=== PATIENT | male | born 1980 | race Two or more races ===

== ENCOUNTER 2016-10-04 20:11 | Inpatient (IN) | payer SELFPAY ==
[~2016-10-04] VITALS: Ht 185.4 cm; Wt 98.0 kg
[2016-10-04 21:38] LABS: BASO % 0 % (0-3); EOS % 1 % (0-3); HEMATOCRIT 49.4 % (39.0-53.0); HEMOGLOBIN 16.7 g/dL (13.0-17.5); LYMPH % 49 % (24-48); MEAN CORPUSCULAR HEMOGLOBIN 32 pg (25-35); MEAN CORPUSCULAR HGB CONC 34 g/dL (31-37); MEAN CORPUSCULAR VOLUME 95 fL (79-100); MONO % 8 % (0-9); NEUT % 42 % (31-73); PLATELET COUNT 187 x10^3/uL (140-400); RED BLOOD COUNT 5.19 x10^6/uL (4.30-5.70); WHITE BLOOD COUNT 8.1 x10^3/uL (4.0-11.0)
[2016-10-04 21:49] LABS: PROTHROMBIN TIME PATIENT 12.4 SEC (11.7-14.0)
[2016-10-04 22:01] LABS: CREATININE 0.9 mg/dL (0.7-1.3); POTASSIUM 3.7 mmol/L (3.5-5.1)
[2016-10-04 22:05] LABS: DIRECT BILIRUBIN 0.1 mg/dL (0.0-0.2); MAGNESIUM 2.6 mg/dL (1.8-2.4); TOTAL BILIRUBIN 0.3 mg/dL (0.2-1.0)
--- NOTE | 2016-10-04 22:10 | PHYS DOC ---
Past Medical History Past Medical History: Other Additional Past Medical Histor: unknown Past Surgical History: Other Additional Past Surgical Histo: unknown Alcohol Use: Heavy Social History Narrative: unknown Adult General Chief Complaint Chief Complaint: OVERDOSE HPI HPI Patient is a 35 year old male who presents by EMS for altered mental status and possible suicidal attempt. Brother is here and states the patient called him and told him to take care of his family. Brother became concerned for patient's well being and went to his house. He did not answer the door, so his brother broke into the home to find the patient on the ground next to a bottle of liquor and a knife with shallow cuts on his left forearm. Brother called EMS. Patient is not awake to answer questions at this time. Brother states patient has been going through a lot of stress recently. Review of Systems Review of Systems Unable to obtain secondary to clinical status Allergies Allergies Allergies Coded Allergies Type Severity Reaction Last Updated Verified No Known Drug Allergies 10/04/16 No Physical Exam Physical Exam Constitutional: Well developed, well nourished, no acute distress, non-toxic appearance. [] HENT: Normocephalic, atraumatic, bilateral external ears normal, oropharynx moist, no oral exudates, nose normal. [] Eyes: PERRLA, EOMI, conjunctiva normal, no discharge. [] Neck: Normal range of motion, no tenderness, supple, no stridor. [] Cardiovascular:Heart rate regular rhythm [] Lungs & Thorax: Bilateral breath sounds clear to auscultation [] Abdomen: Bowel sounds normal, soft, no tenderness. [] Skin: Warm, dry, no erythema, no rash. [] Back: No tenderness, no CVA tenderness. [] Extremities: No tenderness, passive ROM intact, no edema. [] Neurologic: Sleepy but wakes to painful stimuli, (his eyes to pain, localizes pain, speaks clearly to pain), otherwise does not cooperate with neuro exam. [] Psychologic: Unable to assess secondary to altered mental status. [] Current Patient Data Vital Signs Vital Signs Date Time Temp Pulse Resp B/P Pulse Ox O2 Delivery O2 Flow Rate FiO2 10/04/16 21:40 99 16 159/83 99 Nasal Cannula 2 10/04/16 20:12 98.3 98.3 Lab Values Laboratory Tests Test 10/04/16 20:18 10/04/16 21:15 Urine Collection Type Unknown Urine Color Yellow Urine Clarity Clear Urine pH 6.0 Urine Specific [place] <=1.005 Urine Protein Negativemg/dL (NEG-TRACE) Urine Glucose (UA) Negativemg/dL (NEG) Urine Ketones (Stick) Negativemg/dL (NEG) Urine Blood Large (NEG) Urine Nitrite Negative (NEG) Urine Bilirubin Negative (NEG) Urine Urobilinogen Dipstick 0.2mg/dL (0.2 mg/dL) Urine Leukocyte Esterase Negative (NEG) Urine RBC 3-5/HPF (0-2) Urine WBC 0/HPF (0-4) Urine Squamous Epithelial Cells Few/LPF Urine Bacteria 0/HPF (0-FEW) Urine Opiates Screen Neg (NEG) Urine Methadone Screen Neg (NEG) Urine Barbiturates Neg (NEG) Urine Phencyclidine Screen Neg (NEG) Urine Amphetamine/Methamphetamine Neg (NEG) Urine Benzodiazepines Screen Neg (NEG) Urine Cocaine Screen Neg (NEG) Urine Cannabinoids Screen Neg (NEG) Urine Ethyl Alcohol Pos (NEG) White Blood Count 8.1x10^3/uL (4.0-11.0) Red Blood Count 5.19x10^6/uL (4.30-5.70) Hemoglobin 16.7g/dL (13.0-17.5) Hematocrit 49.4% (39.0-53.0) Mean Corpuscular Volume 95fL (79-100) Mean Corpuscular Hemoglobin 32pg (25-35) Mean Corpuscular Hemoglobin Concent 34g/dL (31-37) Red Cell Distribution Width 13.0% (11.5-14.5) Platelet Count 187x10^3/uL (140-400) Neutrophils (%) (Auto) 42% (31-73) Lymphocytes (%) (Auto) 49% (24-48) H Monocytes (%) (Auto) 8% (0-9) Eosinophils (%) (Auto) 1% (0-3) Basophils (%) (Auto) 0% (0-3) Neutrophils # (Auto) 3.4x10^3uL (1.8-7.7) Lymphocytes # (Auto) 4.0x10^3/uL (1.0-4.8) Monocytes # (Auto) 0.6x10^3/uL (0.0-1.1) Eosinophils # (Auto) 0.1x10^3/uL (0.0-0.7) Basophils # (Auto) 0.0x10^3/uL (0.0-0.2) Prothrombin Time 12.4SEC (11.7-14.0) Prothrombin Time INR 1.0 (0.8-1.1) PTT 28SEC (24-38) Sodium Level 144mmol/L (136-145) Potassium Level 3.7mmol/L (3.5-5.1) Chloride Level 106mmol/L (98-107) Carbon Dioxide Level 27mmol/L (21-32) Anion Gap 11 (6-14) Blood Urea Nitrogen 11mg/dL (8-26) Creatinine 0.9mg/dL (0.7-1.3) Estimated GFR (Cockcroft-Gault) 96.0 Glucose Level 125mg/dL (70-99) H Calcium Level 9.0mg/dL (8.5-10.1) Magnesium Level 2.6mg/dL (1.8-2.4) H Total Bilirubin 0.3mg/dL (0.2-1.0) Direct Bilirubin 0.1mg/dL (0.0-0.2) Aspartate Amino Transferase (AST) 62U/L (15-37) H Alanine Aminotransferase (ALT) 101U/L (16-63) H Alkaline Phosphatase 104U/L (46-116) Ammonia 21mcmol/L (11-34) Troponin I Quantitative < 0.017ng/mL (0.000-0.055) Total Protein 8.0g/dL (6.4-8.2) Albumin 4.0g/dL (3.4-5.0) Salicylates Level < 2.8mg/dL (2.8-20.0) L Salicylate Last Dose Date Unknown Salicylate Last Dose Time Unknown Acetaminophen Level < 2.0mcg/ml (10-30) L Acetaminophen Last Dose Date Unknown Acetaminophen Last Dose Time Unknown Ethyl Alcohol Level 117mg/dL (0-10) H Laboratory Tests 10/04/16 21:15 Laboratory Tests 10/04/16 21:15 Radiology/Procedures Radiology/Procedures Chest xray as interpreted by me with no acute cardiopulmonary disease process Head CT without contrast IMPRESSION: No acute intracranial abnormality. Electronically signed by: Carlitos Goff (Oct 04, 2016 22:52:34) Course & Med Decision Making Course & Med Decision Making Pertinent Labs and Imaging studies reviewed. (See chart for details) Workup remarkable for alcohol intoxication. He became very agitated during his observation and required physical restraint and chemical restraint. He calmed and restraints were removed while he was still in the emergency department. His altered mental status persists. Will admit for altered mental status likely from metabolic encephalopathy. Suicidal precautions in place for concern of suicidal attempt. Discussed case with Dr. Gutiérrez, who will admit. Dragon Disclaimer Dragon Disclaimer This electronic medical record was generated, in whole or in part, using a voice recognition dictation system. Departure Departure Impression: Primary Impression: Altered mental status Additional Impressions: Metabolic encephalopathy Alcohol intoxication Suicidal behavior Disposition: 09 ADMITTED INPATIENT Condition: GUARDED Referrals: NO PCP (PCP) Problem Qualifiers Primary Impression: Altered mental status Altered mental status type: somnolence Qualified Code: R40.0 - Somnolence Additional Impressions: Alcohol intoxication Complication of substance-induced condition: with delirium Qualified Code: F10.121 - Alcohol abuse with intoxication delirium Boris HOPE MD Oct 04, 2016 22:10
[2016-10-04 22:20] LABS: BILIRUBIN,URINE NEGATIVE (NEG); GLUCOSE,URINE NEGATIVE (NEG); NITRITE,URINE NEGATIVE (NEG); PROTEIN,URINE NEGATIVE (NEG-TRACE); UROBILINOGEN,URINE 0.2 mg/dL (0.2 mg/dL)
[2016-10-04 22:27] LABS: BACTERIA,URINE 0 /HPF (0-FEW); BARBITURATES NEG (NEG); BENZODIAZEPINES NEG (NEG); CANNABINOIDS NEG (NEG); COCAINE NEG (NEG); METHADONE NEG (NEG); OPIATES NEG (NEG); PHENCYCLIDINE NEG (NEG); SQUAMOUS EPITHELIAL CELL,UR FEW /LPF; WBC,URINE 0 /HPF (0-4)
[2016-10-04 22:29] LABS: ETHANOL, URINE POS (NEG)
--- NOTE | 2016-10-04 22:53 | RAD ---
PQRS STATEMENT One or more of the following individualized dose reduction techniques were utilized for this study: 1.Automated exposure control 2.Adjustment of the mA and/or kV according to patient size 3.Use of iterative reconstruction technique CT HEAD Indication: ams, pt unresponsiveReason: altered mental status / Spl. Instructions: / History: COMPARISON: None TECHNIQUE: 5 mm contiguous axial images were obtained from the skull base to the vertex in both bone and soft tissue algorithm. FINDINGS: No abnormal attenuation within the brain parenchyma. No evidence of acute intracranial hemorrhage. No extra-axial fluid collections. No mass effect or midline shift.Ventricular size is appropriate. Basal cisterns are patent. No fractures identified. Globes and orbits are within normal limits. Paranasal sinuses and mastoid air cells are clear. IMPRESSION: No acute intracranial abnormality. Electronically signed by: Carlitos Goff (Oct 04, 2016 22:52:34)
[2016-10-04 23:19] LABS: ETHANOL 117 mg/dL (0-10)
[2016-10-04] MEDS ORDERED: ONDANSETRON PF 4 MG/2 ML VIAL. IV PRN (23:30)
[2016-10-04] MEDS ORDERED: ACETAMINOPHEN 325 MG TABLET. PO PRN (23:30)
[2016-10-04] MEDS ORDERED: HALOPERIDOL LACT 5 MG/ML VIAL. IVP ONE (23:45)
[2016-10-04] MEDS: IV NORMAL SALINE 1000ML BAG 1,000 ML IV SCH (23:46)
[2016-10-05 02:49] VITALS: BP 143/86
[2016-10-05 03:00] VITALS: BP 143/86
--- NOTE | 2016-10-05 04:08 | ACF ---
Admit Criteria Forms Admit Criteria Forms Admit Criteria Forms MENTAL STATUS CHANGE Clinical Indications for Inpatient Care (Place 'X' for any and all applicable criteria): Ongoing inpatient care may be needed for ANY ONE of the following(1)(2)(3)(5)(6) : [X]I. Suspected serious etiology (eg, medical disorder, PROPERTY CLAIMS MANAGER event) of mental status change [ ]II. Danger to self or others not manageable at lower level of care [ ]III. Grave disability (eg, inability to perform self care necessary at lower level of care) [ ]IV. Agitation or inappropriate behavior interfering with care for primary condition (eg, attempting to discontinue lines or drains prematurely, unable to cooperate with respiratory care) [ ]V. Delirium [A] [D][E] as described by ANY ONE of the following(26): [ ]a) Delirium due to alcohol or sedative [F] withdrawal [ ]b) Delirium of uncertain etiology that has not responded to appropriate empiric treatment [ ]c) Delirium that prevents performance of a life-sustaining function (eg, feeding or hydrating oneself) [ ]. General contraindications and/or Inappropriate clinical situations for Observational Care in patients with Mental Status Change, when ANY ONE of the following is required: [ ]a) Prediction of prolongation of LOS based on ANY ONE of the following may be considered as a contraindication for observational care 2, 3, 4, 5, 6, 7, 8, 9, 10, 11 [ ]i) Age > 65 yrs. [ ]ii) Patient arriving by ambulance [ ]iii) Patient with high acuity [ ]iv) Patient requiring vital sign monitoring [ ]v) Patient on IV medication [ ]b) Systolic blood pressures 180mmHg 3,12 [ ]c) Patient with altered mental status including delirium and other alteration of consciousness, (3) [ ]d) Patient whose discharge disposition will be to a [facility] home or rehabilitation home should not be managed in Emergency Department Observation Unit. CMS rule requires 3 days hospital stay before such placement.3,13 [ ]e) Patient with failure to thrive due to broad array of etiologies 3,16,17 [ ]f) Inability to ambulate 3,14 Extended stay beyond goal length of stay for the primary condition may be needed until ALL of the following are present(3)(5): [ ]a) Underlying medical etiology of mental status change is absent, or has been established and adequately treated [ ]b) Danger to self or others is absent or manageable at lower level of care. [ ]c) Behavior crisis management, including physical or chemical restraints, is not required or available at lower level of car [ ]d) Substance or alcohol withdrawal is absent or manageable at lower level of care. [ ]e) Behavioral symptoms (eg, agitation, somnolence, inappropriate behavior) are absent, or are manageable at lower level of care. The original [facility] [employer] content created by [facility] [employer] has been revised. The portions of the content which have been revised are identified through the use of italic text or in bold, and [facility] has neither reviewed nor approved the modified material. All other unmodified content is copyright [facility] [employer]. Please see references footnoted in the original [facility] [employer] edition 2015 BERTIN SMITH Oct 05, 2016 04:08
[2016-10-05 07:00] VITALS: BP 108/84
--- NOTE | 2016-10-05 07:04 | EKG ---
[facility] [address] [place] [address] Test Date: 2016-10-04 Test Time: 20:20:23 Pat Name: CYNDEE SAHNI Department: Room: Gender: M Certified Legal Secretary Specialist: : [id number] Requested By: Boris HOPE Order Number: [id number] Reading MD: Measurements Intervals Fabens Rate: 107 P: 30 NV: 202 QRS: 1 QRSD: 114 T: 14 QT: 330 QTc: 446 Interpretive Statements SINUS TACHYCARDIA PROLONGED NV INTERVAL QRS(T) CONTOUR ABNORMALITY CONSIDER INFERIOR MYOCARDIAL DAMAGE ABNORMAL ECG RI6.01 No previous ECG available for comparison
--- NOTE | 2016-10-05 07:42 | RAD ---
Indication altered mental status. Unresponsive patient. Suspect CVA. Protocol exam. A single view of the chest was obtained. No prior imaging of the chest is available. Inspiratory effort is suboptimal. Heart size is at the upper limits of normal. An acute parenchymal infiltrate is not seen. The pulmonary vasculature is normal. IMPRESSION: Heart size at the upper limits of normal. No definite acute or focal process seen in the chest
[2016-10-05] MEDS: IV NORMAL SALINE 1000ML BAG 1,000 ML IV SCH (08:52)
[2016-10-05 11:04] VITALS: BP 128/85
--- NOTE | 2016-10-06 07:14 | DS ---
DATE OF DISCHARGE: 10/05/2016 CHIEF COMPLAINT: Mental status change. HISTORY OF PRESENT ILLNESS: The patient is a pleasant middle-aged relatively healthy male who states he normally does not drink. He states he was having some Tequila last night because he had been depressed. He was brought in by EMS. They were concerned he could be having a suicide attempt because he cut his arm a couple of times on the left with a knife. The patient has been admitted overnight. This morning he is more alert. He is sober. He states he really does not remember much, does not want to hurt himself. We plan to let him go this afternoon if the psychiatric assessment team agrees. PAST MEDICAL HISTORY: None. ALLERGIES: None. FAMILY HISTORY: Hypertension. SOCIAL HISTORY: Does not drink, smoke or take drugs normally. MEDICATIONS: Reviewed, please refer to the MRAD. REVIEW OF SYSTEMS: GENERAL: No history of weight change, weakness or fevers. SKIN: No bruising, hair changes or rashes. EYES: No blurred, double or loss of vision. NOSE AND THROAT: No history of nosebleeds, hoarseness or sore throat. HEART: No history of palpitations, chest pain or shortness of breath on exertion. LUNGS: Denies cough, hemoptysis, wheezing or shortness of breath. GASTROINTESTINAL: Denies changes in appetite, nausea, vomiting, diarrhea or constipation. GENITOURINARY: No history of frequency, urgency, hesitancy or nocturia. NEUROLOGIC: Denies history of numbness, tingling, tremor or weakness. PSYCHIATRIC: No history of panic, anxiety or depression. ENDOCRINE: No history of heat or cold intolerance, polyuria or polydipsia. EXTREMITIES: Denies muscle weakness, joint pain, pain on walking or stiffness. PHYSICAL EXAMINATION: VITAL SIGNS: Temperature afebrile, pulse 67, respirations 18, blood pressure 144/90. GENERAL: He is alert, cooperative, requesting discharge. HEART: Normal S1, S2. LUNGS: Clear. ABDOMEN: Soft, positive bowel sounds. EXTREMITIES: No edema. SKIN: No rashes. PSYCHIATRIC: He is currently stable. He denies any suicidal ideation. Does not really remember what happened last night. ENDOCRINE: No thyromegaly. LYMPHATICS: No cervical nodes. HEMATOPOIETIC: No bruising. LABORATORY DATA: Hematology normal. Electrolytes normal other than glucose of 125. His magnesium is a little high at 2.6. AST and ALT are a little high at 62 and 101. INR 1. Drug screen positive for alcohol. UA is negative. ASSESSMENT AND PLAN: Resolving alcohol intoxication with possible suicide attempt (the patient really denies trying to hurt himself and insists that he is not going to hurt himself). We will go ahead and keep him here for another hour or two until psychiatric assessment team sees him. If they agree, we will let him go home. DISPOSITION: Probably home this afternoon. ACTIVITY: As tolerated. DIET: Low sodium. MEDICATIONS: Please see the MRAD. Total time of discharge is 32 minutes. GENO VALLECILLO DO DR: FRANCIS/alfredito JOB#: [id number] / [id number]
== END 2016-10-05 12:40 | disposition home or self-care (01) | DRG 896 ==
LOC: ER 20:11 → 6 SOUTH 23:00
PROVIDERS: ADMIT Internal Medicine; ATTEND Internal Medicine
DX: F10.129 Alcohol abuse with intoxication, unspecified (principal); G93.41 Metabolic encephalopathy; T14.91 Suicide attempt; Z82.49 Family history of ischemic heart disease and other diseases of the circulatory system
CPT/HCPCS: 36415; 51702; 70450; 71010; 80048; 80076; 81001; 82140; 83735; 84484; 85027; 85610; 85730; 93005; 96374; 96375; G0480; G0481; G6038; J1630; J2405; J7030; 80196; 99285-25

== ENCOUNTER 2017-01-03 11:44 | Emergency (ER) | payer SELFPAY ==
[~2017-01-03] VITALS: Ht 177.8 cm; Wt 77.1 kg
[2017-01-03 11:44] VITALS: BP 161/99
--- NOTE | 2017-01-03 12:22 | PHYS DOC ---
Past Medical History Past Medical History: No Pertinent History, Other Additional Past Medical Histor: PT DENIES Past Surgical History: No Surgical History, Other Additional Past Surgical Histo: PT DENIES Alcohol Use: Heavy Social History Narrative: PT DENIES ANY SMOKING/DRINKING/STREET DRUGS Adult General Chief Complaint Chief Complaint: MECHANICAL FALL HPI HPI Patient is a 36 year old male brought in by EMS for evaluation of syncopal episode with headache. He is covering grass and is in a c-collar laying flat in bed. He informed the nurse before I came in that he wants to sign out AGAINST MEDICAL ADVICE. I went and spoke to him and asked him what happened and he says that he has these syncopal episodes every once a while last was 5 years ago. He told me that he has not seen anyone in 5 years I told him it would be a good idea if you let me check him out. Patient refused stating that he needs to go to work and he feels fine. Patient is alert and oriented 3, and he is moving all his extremities and he has normal vital signs. Patient stood up and walked in front of me with a normal gait. Patient is going to sign out AGAINST MEDICAL ADVICE and he accepted the risks of and disability by leaving against my advice. Review of Systems Review of Systems UNABLE TO OBTAIN HE IS WANTING TO SIGN OUT AMA. Allergies Allergies Allergies Coded Allergies Type Severity Reaction Last Updated Verified No Known Drug Allergies 10/04/16 No Physical Exam Physical Exam Constitutional: Well developed, well nourished, no acute distress, non-toxic appearance. [] Current Patient Data Vital Signs Vital Signs Date Time Temp Pulse Resp B/P (MAP) Pulse Ox O2 Delivery O2 Flow Rate FiO2 01/03/17 11:44 97.8 103 18 161/99 (119) 96 Room Air 97.8 EKG EKG [] Radiology/Procedures Radiology/Procedures [] Course & Med Decision Making Course & Med Decision Making Patient signed out AMA. Michael Disclaimer Michael Disclaimer This electronic medical record was generated, in whole or in part, using a voice recognition dictation system. Departure Departure Impression: Primary Impression: Syncope and collapse Disposition: 07 AGAINST MEDICAL ADVICE Condition: STABLE Referrals: NO PCP (PCP) Scripts No Active Prescriptions or Reported Meds CYNDEE TRAN DO January 03, 2017 12:22
--- NOTE | 2017-01-03 12:31 | ACF ---
Admission Forms Criteria SYNCOPE Clinical Indications for Admission to Inpatient Care ( Place 'X' for any and all applicable criteria): Admission is indicated for syncope and ANY ONE of the following (1)(2)(3)(4)(5) (6)(7) : [X]I. Inpatient admission required rather than observation care (Also use Syncope: Observation Care Criteria as appropriate) because of ANY ONE of the following: [ ]a) Hemodynamic instability that is severe or persistent [ ]b) Cardiac arrhythmias of immediate concern identified or strongly suspected (eg, needs electrophysiologic study) [ ]c) Acute coronary syndrome identified (Also use Myocardial Infarction or Angina Criteria form ) [ ]d) Structural cardiac disorder (eg, aortic stenosis) suspected as cause that requires immediate correction [ ]e) Respiratory symptoms (eg, dyspnea, tachypnea) that are severe or persistent [ ]f) Neurologic signs or symptoms that are severe or persistent ( eg, stroke, seizures, altered mental status) [ ]g) Severe electrolyte abnormalities requiring inpatient care [ ]h) Supplemental oxygen or respiratory treatment for over 24 hrs that are performable only in acute inpatient setting [ ]i) IV fluid to replace significant ongoing (eg, for over 24 hrs ) losses (>3 L/m2 per day) [ ]j) Continuous intravenous infusion of anticoagulation, platelet inhibitor, vasoactive, or antiarrhythmic medication(15)(16) [ ]k) Pulmonary artery catheter monitoring [ ]l) Temporary pacemaker placement(17) [ ]m) Emergent cardioversion(18) [X]n) Other conditions, treatment or monitoring requiring inpatient admission [ ]II. Suspicion of imminently dangerous cause (eg, rare causes like pericardial tamponade, pulmonary embolism) [ ]III. Syncope causing severe injury requiring hospitalization Extended stay beyond goal length of stay may be needed for(28) [ ]a) Dangerous arrhythmia(15)(23)(27)(29) [ ]b) Myocardial ischemia [ ]c) Seizure disorder [ ]d) Syncope-related injuries The original [employer] content created by [employer] has been revised. The portions of the content which have been revised are identified through the use of italic text or in bold, and [employer] has neither reviewed nor approved the modified material. All other unmodified content is copyright [employer]. Please see references footnoted in the original [facility] edition 2016 Admission Criteria Met?: Yes PILAR ROWE January 03, 2017 12:31
== END 2017-01-03 12:00 | disposition left against medical advice (07) ==
LOC: ER 11:57
DX: R55 Syncope and collapse (principal); F17.200 Nicotine dependence, unspecified, uncomplicated; F10.10 Alcohol abuse, uncomplicated
CPT/HCPCS: 99284